=== PATIENT | male | born 1955 | race Hispanic/Latino ===

== ENCOUNTER 2017-08-31 21:35 | Emergency (ER) | payer BC ==
[~2017-08-31] VITALS: Ht 175.3 cm; Wt 83.5 kg
[2017-08-31] MEDS ORDERED: DEXAMETHASONE 4 MG TAB PO STA (21:51)
[2017-08-31] MEDS ORDERED: DIPHENHYDRAMINE HCL 25 MG CAP ONE (21:57)
[2017-08-31] MEDS ORDERED: DEXAMETHASONE 4 MG TAB ONE ×2 (21:57→21:58)
[2017-08-31] MEDS ORDERED: PERMETHRIN60 GM TOP (21:58)
[2017-08-31] MEDS ORDERED: DIPHENHYDRAMINE HCL 25 MG CAP PO ONE (22:00)
== END 2017-08-31 22:06 | disposition home or self-care (01) ==
LOC: ER 21:35
DX: R21 Rash and other nonspecific skin eruption (principal); E11.9 Type 2 diabetes mellitus without complications
CPT/HCPCS: 99282

== ENCOUNTER 2022-10-11 03:51 | Emergency (ER) | payer OTHER, BC ==
[~2022-10-11] VITALS: Ht 175.3 cm; Wt 83.5 kg
[~2022-10-11 03:51] MED LIST: PERMETHRIN60 GM TOP
[2022-10-11] MEDS ORDERED: ULTRAM 50MG50 MG PO (05:00)
[2022-10-11 05:19] VITALS: BP 150/81
== END 2022-10-11 05:15 | disposition home or self-care (01) ==
LOC: ER 03:54
DX: S93.491A Sprain of other ligament of right ankle, initial encounter (principal); X50.1XXA Overexertion from prolonged static or awkward postures, initial encounter; Y93.01 Activity, walking, marching and hiking; Y92.89 Other specified places as the place of occurrence of the external cause; G47.00 Insomnia, unspecified
CPT/HCPCS: 99283